=== PATIENT | male | born 1980 | race Caucasian/White ===

== ENCOUNTER 2020-02-19 10:59 | Emergency (ER) | payer BC, SELFPAY ==
--- NOTE | ~2020-02-19 | XR_ITS ---
EXAMINATION: XR finger 2nd LT min 2V DATE: 02/19/2020 11:51 INDICATION: Table saw injury to the left second digit TECHNIQUE: Dorsal palmar, lateral and oblique views of the left second digit were obtained COMPARISON: None FINDINGS: Deep laceration at the distal tip of the left second digit with underlying comminuted fractures of th e tuft and distal diaphysis of the left second distal phalanx. Mild distal and palmar displacement of the tuft fragment with no significant displacement on the additional fracture planes extending into the diaphysis. No other fractures identified. 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 IMPRESSION: 1. Comminuted and open/compound fracture of the mid distal aspect of the left second distal phalanx. Reviewed, dictated and finalized at location A. IMPRESSION: 1. Comminuted and open/compound fracture of the mid distal aspect of the left s econd distal phalanx.
[2020-02-19 11:09] VITALS: BP 159/106; PULSE 68; RESP 16; TEMP 36.6; O2SAT 96
--- NOTE | 2020-02-19 11:41 | ED.UPPEXIN ---
HPI - Extremity Injury (Upper) General Chief Complaint: Extremity Injury, Upper <Rena Muñoz PA-C - Last Filed: 02/19/20 13:09> Stated Complaint: L 2ND DIGIT INJURY <OZIEL Marcelino Last Filed: 02/19/20 13:09> Time Seen by Provider: 02/19/20 11:22 <Rena Muñoz PA-C - Last Filed: 02/19/20 13:09> Source: patient <OZIEL Marcelino Last Filed: 02/19/20 13:09> Mode of arrival: ambulatory <OZIEL Marcelino Last Filed: 02/19/20 13:09> Limitations: no limitations <Rena Muñoz PA-C - Last Filed: 02/19/20 13:09> History of Present Illness HPI narrative: This is a 39-year-old [id number] male that presents the emergency department for left second finger injury sustained just prior to arrival. Reports he was using a miter saw and accidentally cut off part of the tip of the finger. Reports bleeding and pain to the area. He is unsure of his last tetanus vaccine. Reports numbness to the tip of the finger. Denies decreased range of motion. <Rena Muñoz PA-C - Last Filed: 02/19/20 13:09> Related Data Home Medications: Home Medications Medication Instructions Recorded Confirmed naproxen 500 mg PO BID PRN 02/19/20 omeprazole 20 mg PO DAILY PRN 02/19/20 <Rena Muñoz PA-C - Last Filed: 02/19/20 13:09> Allergies/Adverse Reactions: Allergies Allergy/AdvReac Type Severity Reaction Status Date / Time No Known Allergies Allergy Verified 02/19/20 11:12 <OZIEL Marcelino Last Filed: 02/19/20 13:09> Review of Systems Review of Systems: Narrative: CONSTITUTIONAL: Denies fever SKIN: Reports laceration MUSCULOSKELETAL: Denies joint pain, or myalgia. NEUROLOGIC: Reports numbness <OZIEL Marcelino Last Filed: 02/19/20 13:09> All systems reviewed & are unremarkable except as noted in HPI and below <Rena Muñoz PA-C - Last Filed: 02/19/20 13:09> PMFSH Past Medical History Medical History: Medical History (Updated 02/19/20 @ 13:07 by Rena Muñoz PA-C) History of gastroesophageal reflux (GERD) <Rena Muñoz PA-C - Last Filed: 02/19/20 13:09> Social History Social History: Social History (Updated 02/19/20 @ 11:42 by Rena Muñoz PA-C) Smoking status: Current some day smoker Tobacco type: cigars <Rena Muñoz PA-C - Last Filed: 02/19/20 13:09> Exam Narrative: Exam Narrative: GENERAL: Well-appearing, well-nourished, and in no acute distress. HEAD: Normocephalic, atraumatic. EYES: EOMI. EXTREMITIES: Normal range of motion. No edema. Left second finger distal phalanx with palmar surface partial amputation of the tip of the finger SKIN: Warm, dry, no rash. NEURO: No focal deficits. Alert and oriented x3. PSYCH: Normal mood and affect <Rena Muñoz PA-C - Last Filed: 02/19/20 13:09> Course Consultations Consultation #1: Spoke with Dr. Edwards about patient and work-up. Will attempt to reapproximate partial amputation. He will follow-up in clinic <Rena Muñoz PA-C - Last Filed: 02/19/20 13:09> Date: 02/19/20 <Rena Muñoz PA-C - Last Filed: 02/19/20 13:09> Time: 13:05 <Rena Muñoz PA-C - Last Filed: 02/19/20 13:09> Vital Signs Vital signs: Vital Signs Temperature 36.6 C 02/19/20 11:09 Pulse Rate 68 02/19/20 11:09 Respiratory Rate 16 02/19/20 11:09 Blood Pressure 159/106 H 02/19/20 11:09 Pulse Oximetry 96 02/19/20 11:09 Temperature 36.6 C 02/19/20 11:09 Pulse Rate 74 02/19/20 13:17 Respiratory Rate 16 02/19/20 11:09 Blood Pressure 159/106 H 02/19/20 11:09 Pulse Oximetry 98 02/19/20 13:17 <Rena Muñoz PA-C - Last Filed: 02/19/20 13:09> Vital Signs Temperature 36.6 C 02/19/20 11:09 Pulse Rate 68 02/19/20 11:09 Respiratory Rate 16 02/19/20 11:09 Blood Pressure 159/106 H 02/19/20 11:09 Pulse Oximetry 96 02/19/20 11:09 Temperature 36.6 C 02/19/20 11:0
[2020-02-19] MEDS: ceFAZolin SODIUM 1 GM VIAL IM (11:59)
[2020-02-19] MEDS: TETANUS,DIPHTHERIA,AC PERTUSSIS ADULT (0.5 ML) BOOSTRIX IM (11:59)
[2020-02-19] MEDS: HYDROcodone/acetaminophen (*CRX) 5-325 MG TABLET 1 TAB PO (12:00)
[2020-02-19] MEDS: WATER, STERILE FOR INJECTION 10 ML VIAL XX (12:03)
[2020-02-19 13:17] VITALS: PULSE 74; O2SAT 98
== END 2020-02-19 13:17 | disposition home or self-care (01) ==
PROVIDERS: Emergency Provider Emergency Medicine; PCP Nurse Practitioner Family
DX: S62.631B Displaced fracture of distal phalanx of left index finger, initial encounter for open fracture (principal); Z23 Encounter for immunization; W31.2XXA Contact with powered woodworking and forming machines, initial encounter
CPT/HCPCS: 12001; 12041; 29130; 73140; 90471; 90715; 96372; 99284; A9270; J0690

== ENCOUNTER → 2020-03-28 10:03 | Outpatient (CLI) | payer BC, SELFPAY ==
--- NOTE | ~2020-03-28 | XR_ITS ---
EXAMINATION: XR finger 2nd LT min 2V DATE: 03/28/2020 10:26 INDICATION: Displaced fracture of distal phalanx of left index finger. TECHNIQUE: 4 views of left hand second digit were obtained. COMPARISON: Left hand second digit radiographs 02/19/2020 FINDINGS: There is a comminuted fracture of tuft of second distal phalanx. The main distal fracture f ragment demonstrates 2 mm distraction. Callus is not identified. There is mild osteoarthritis of seco nd metacarpophalangeal joint and proximal interphalangeal joint and moderate osteoarthritis of second distal interphalangeal joint. IMPRESSION: 1. Comminuted fracture of tuft of second distal phalanx, unchanged from 02/19/2020. Reviewed, dictated and finalized at location B. [employer] IMPRESSION: 1. Comminuted fracture of tuft of second distal phalanx, unchanged from 020.
== END ==
PROVIDERS: PCP Nurse Practitioner Family; Visit Provider Plastic Surgery
DX: S62.631D Displaced fracture of distal phalanx of left index finger, subsequent encounter for fracture with routine healing (principal); X58.XXXD Exposure to other specified factors, subsequent encounter
CPT/HCPCS: 73140

== ENCOUNTER → 2022-05-13 15:31 | Outpatient (CLI) | payer BC, SELFPAY ==
--- NOTE | ~2022-05-13 | XR_ITS ---
XR chest 2V DATE: 05/13/2022 15:59 INDICATION: Cough TECHNIQUE: 2 views COMPARISON: 12/23/2016 two-view chest FINDINGS: Normal heart size. No hilar or mediastinal enlargement. No pulmonary infiltrate or consolid ation, pleural effusion or pulmonary vascular congestion or pneumothorax. Included skeletal structure s are unremarkable. IMPRESSION: No active cardiopulmonary disease Reviewed, dictated and finalized at location L. [employer]
== END ==
PROVIDERS: PCP Nurse Practitioner Family; Visit Provider Nurse Practitioner Family
DX: R05.9 Cough, unspecified (principal)
CPT/HCPCS: 71046

== ENCOUNTER → 2023-03-10 13:12 | Outpatient (REF) | payer BC, SELFPAY | LOC: ANHLAB 13:12 | PROVIDERS: PCP Nurse Practitioner Family; Visit Provider Plastic Surgery | DX: D17.0 Benign lipomatous neoplasm of skin and subcutaneous tissue of head, face and neck (principal); R22.2 Localized swelling, mass and lump, trunk | CPT/HCPCS: 88305 ==

== ENCOUNTER 2023-03-24 14:10 | Outpatient (CLI) | payer BC, SELFPAY ==
[2023-03-24 15:17] LABS: Basophils Percent Auto 0.4 % (0.2-1.2); Eosinophils Absolute Auto 0.1 K/mm3 (0-0.3); Eosinophils Percent Auto 1.4 % (0-4.4); Hematocrit 43.4 % (42.0-52.0); Hemoglobin 14.4 g/dL (14.0-18.0); Immature Granulocyte Absolute 0.02 K/mm3 (0.00-0.031); Immature Granulocyte Percent A 0.3 % (0-0.5); Lymphocytes Absolute Auto 2.13 K/mm3 (0.9-3.2); Lymphocytes Percent Auto 27.2 % (18.3-44.2); Mean Corpuscular HGB Conc 33.2 g/dl (32-36); Mean Corpuscular Hemoglobin 28.9 pg (26-34); Mean Corpuscular Volume 87.1 fl (80-100); Mean Platelet Volume 9.5 fl (7.4-10.4); Monocytes Absolute Auto 0.6 K/mm3 (0.1-0.6); Monocytes Percent Auto 7.7 % (2.6-8.5); Neutrophils Absolute Auto 4.9 K/mm3 (1.3-6.7); Platelet Count Result 300 k/mm3 (150-375); Red Blood Count 4.98 M/mm3 (4.6-6.20); Red Cell Distribution Width 12.6 % (11.5-14.5); White Blood Count 7.8 K/mm3 (4.5-10.0)
[2023-03-24 15:22] LABS: CRP < 0.5 mg/dL (<1.0)
[2023-03-24 16:58] LABS: Erythrocyte Sedimentation Rate 14 mm/hr (0-20)
== END 2023-03-24 14:11 | disposition home or self-care (01) ==
PROVIDERS: PCP Nurse Practitioner Family
DX: T84.84XA Pain due to internal orthopedic prosthetic devices, implants and grafts, initial encounter (principal); T56.891A Toxic effect of other metals, accidental (unintentional), initial encounter; T56.2X1A Toxic effect of chromium and its compounds, accidental (unintentional), initial encounter; Z47.1 Aftercare following joint replacement surgery
CPT/HCPCS: 36415; 82495; 83018; 85025; 85652; 86140